=== PATIENT | female | born 1945 | race African-American/Black ===

== ENCOUNTER 2016-12-23 21:40 | Observation (INO) | payer OTHER, SELFPAY ==
--- NOTE | ~2016-12-23 | EKG ---
PATIENT: SHIREEN LEGER UNIT #: [id number] Ventricular Rate: 99 BPM Atrial Rate: 100 BPM P-R Interval: 152 ms QRS Duration: 84 ms Q-T Interval: 334 ms QTC Calculation(Bezet): 428 ms P Baker: 35 degrees Calculated R Baker: -30 degrees Calculated T Baker: 50 degrees Diagnosis Line: Normal sinus rhythm Diagnosis Line: Left axis deviation Diagnosis Line: Lead switch V1-V2 and V3 Diagnosis Line: Moderate voltage criteria for LVH, may be normal Diagnosis Line: variant Diagnosis Line: Abnormal ECG Diagnosis Line: When compared with ECG of 06-NOV-2016 06:05, Diagnosis Line: Criteria for Inferior infarct are no longer Diagnosis Line: Present Diagnosis Line: Confirmed by TRUONG ALEXIS MD ([id number]) on 12/25/2016 Diagnosis Line: 7:30:37 PM INTERPRETING MD: VANESA MITCHELL
--- NOTE | ~2016-12-23 | EKG ---
PATIENT: SHIREEN LEGER UNIT #: [id number] Ventricular Rate: 89 BPM Atrial Rate: 89 BPM P-R Interval: 148 ms QRS Duration: 80 ms Q-T Interval: 352 ms QTC Calculation(Bezet): 428 ms P [place]: 49 degrees Calculated R [place]: -28 degrees Calculated T [place]: 48 degrees Diagnosis Line: Normal sinus rhythm Diagnosis Line: Minimal voltage criteria for LVH, may be normal Diagnosis Line: variant Diagnosis Line: Borderline ECG Diagnosis Line: When compared with ECG of 23-DEC-2016 20:38, Diagnosis Line: (unconfirmed) Diagnosis Line: No significant change was found Diagnosis Line: Confirmed by TRUONG ALEXIS MD ([id number]) on 12/25/2016 Diagnosis Line: 7:30:47 PM INTERPRETING MD: VANESA MITCHELL
--- NOTE | ~2016-12-23 | CR72 ---
[facility] A Service of [facility] RADIOLOGY TEXT RESULTS PATIENT: SHIREEN LEGER LOCATION: CEDOF : 44 UNIT #: [id number] AGE: [address]: Danielle Brewer MD SEX: F ORDER DR: [id number] [facility] [address]. [place], [place] [address] [id number] I MR#: [id number] Acc #: [id number] NAME: SHIREEN LEGER : 1945 SEX: F STUDY DATE/TIME: 12/23/2016 21:14 UNIT: CED ROOM: 97150 STUDY DESCRIPTION: CR Chest Single View Portable Attending Physician: Danielle Brewer M.D. Ordering Physician: Jeremy Gibson M.D. Primary Care Physician: Fernando Stevenson M.D. MEDICAL IMAGING REPORT This report is preliminary unless electronic signature is present EXAM Portable chest HISTORY Chest pain and shortness of air since yesterday. Asthma. FINDINGS Cardiac size and pulmonary vascularity are normal. No focal infiltrates or effusions. Mild linear atelectasis or scarring in both lung bases. Degenerative changes in both shoulders. IMPRESSION No acute findings. No active disease. Dictated by... Thien Santos M.D. THIS IS AN ELECTRONICALLY VERIFIED REPORT Thien Santos M.D. at 12/24/2016 1:59 PM ODILIA/abner TD: 12/24/2016 13:39 JOB #: [id number] MEDICAL IMAGING REPORT COPY
--- NOTE | ~2016-12-23 | DS ---
Unit #: [id number] #: [id number] Patient: SHIREEN GUZMAN [id number] [address] [place], [place] [address] [id number] I MR#: [id number] NAME: SHIREEN GUZMAN ROOM: [address]0635 Age: 71 Sex: F Admission Date: 12/23/2016 : 1945 Discharge Date: 12/24/2016 Attending Physician: Danielle Brewer M.D. Primary Care Physician: Fernando Stevenson M.D. DISCHARGE SUMMARY HISTORY OF PRESENT ILLNESS This is a 71-year-old female who is well known to Dr. Brewer. Has a history of having chronic diastolic dysfunction, diabetes mellitus type 2, hyperlipidemia, hypertension in the past but sometimes hypotension, iron deficiency anemia, GERD, COPD, obstructive sleep apnea, asthma, chronic kidney disease, obesity. Had a cath back in October of this year that revealed normal left main and normal left circumflex with 40% to 50% mid stenosis in the LAD, 30% stenosis in the RCA with a normal LVEF. The patient came to the emergency room with complaints of midsternal chest pain that radiated over to the left side of the heart. She said it was sharp, shooting in nature, was waxing and waning. It has been going off and on for 2 days. She has sublingual nitroglycerin at home, and she took the medication twice, and it did seem to ease off the discomfort. She has also been having some occasional lightheadedness and dizziness, which she says is not new. She has been having that for a couple years. The dizziness and lightheadedness is not associated with the chest pain. She denies any pain up into her neck, bilateral jaws, shoulders, arms or elbow. She does have some arthritic pain in her cervical spine. She denies any palpitations. When she does get lightheaded, she denies any pre-syncope or syncopal episodes. She has been going to Dr. Stevenson and her dinkey engine operator, Dr. Davies, over the past 2-3 weeks for a persistent cough and chest congestion. Sounds like they are treating for some exacerbation of her asthma and/or some bronchitis. The patient does have some increased lower extremity edema, but she says that has not worsened. In the emergency room, the patient's blood pressure was 125/90, heart rate was 104, respirations 22, temperature 98.3. The patient's cardiac enzymes have been negative. Her EKG shows normal sinus rhythm. She does have some left ventricular hypertrophy. There are no acute ischemic changes. BNP is 30. WBC is 17, but she has been on steroids as an outpatient. Her hemoglobin is 8.8. Chest x-ray does not show anything acute. Orthostatic vital signs were obtained. They were unremarkable except her heart rate did elevate with standing. Her systolic blood pressure remained in the 120s lying and standing, and she did not complain of any acute dizziness or lightheadedness. Dr. Anguiano wants to discuss with the patient that he feels her chest pain is not cardiac in nature and likely GI in nature. However, he did look at her last cardiac cath, which was less than 2 months ago. He wants to start Unit #: [id number] #: [id number] Patient: SHIREEN GUZMAN her on a small dose of atenolol 25 mg p.o. daily due to her being a little tachycardic on exam. Also, start her on low-dose Imdur 30 mg daily. She is on her home dose of Lasix 40 mg, will cut that down to 20 mg to avoid any hypotension. The patient requested to change her stomach medication, and that will be changed to Protonix 40 mg daily. The patient states she has a followup appointment with Dr. Brewer on January 03. Will advise the patient to keep that appointment. Dr. Anguiano discussed plans with the patient and daughter at the bedside that, if the chest pain recurs, she may need cardiac cath to check an FFR on the mid LAD stenosis. The patient is favorable for this recommendation. On exam at the time of discharge, her blood pressure and heart rate are stable. No complaints of chest pain. HOME MEDICATIONS 1. Gabapentin 300 mg p.o. t.i.d. 2. Potassium chloride 8 mEq p.o. b.i.d. 3. Prilosec 20 mg p.o. daily. 4. Furosemide "40" mg p.o. daily. 5. Singulair 10 mg p.o. at bedtime. 6. Vitamin D2 - 1.25 mg p.o. monthly. 7. Lipitor 40 mg p.o. at bedtime. 8. Nitrostat 0.4 mg sublingual p.r.n. 9. Symbicort 2 puffs inhalation b.i.d. 10. Ventolin 2 puffs inhalation q.6 hours. ALLERGIES No known drug allergies. PAST MEDICAL HISTORY 1. Cardiac cath 11/06/2016. Normal LVEF. Normal left main and normal left circumflex. LAD had 40% to 50% mid stenosis. The RCA had 30% mid stenosis. 2. Diabetes mellitus type 2. 3. Hypertension in the past but has had problems with hypotension; not on a beta-klarissa because of hypotension. 4. Hyperthyroidism. 5. Peripheral vascular disease. 6. Iron deficiency anemia. 7. Gastroesophageal reflux disease. 8. COPD. 9. Obstructive sleep apnea, unable to tolerate CPAP or BiPAP. 10. Asthma. 11. Chronic lower extremity edema. 12. Glaucoma. 13. Chronic kidney disease. 14. Obesity. 15. December 2015, EGD showed antral erosive moderate gastritis. Had a colonoscopy, removed 5 polyps by polypectomy and revealed diverticulosis. 16. History of chronic diastolic congestive heart failure. 17. Reformed smoker. 18. Latest two-D echo. Mei is down during this dictation, but there was one done 10/2014 that showed overall normal to hyperdynamic LV systolic contractility with [id number]-[id number] concentric left ventricular hypertrophy, trace mitral regurgitation, trace tricuspid regurgitation. 19. October 2014, acute kidney injury secondary to ATN requiring SLED. Unit #: [id number] #: [id number] Patient: SHIREEN GUZMAN The patient has not required further dialysis. PAST SURGICAL HISTORY 1. Pericardial window in the past. 2. Total abdominal hysterectomy. 3. Right wrist surgery. PHYSICAL EXAMINATION GENERAL: On exam, Ms. Guzman is a 71-year-old female in no acute respiratory distress. VITAL SIGNS: Blood pressure lying is 135/67, heart rate 99; blood pressure standing 127/64, heart rate 120, respirations 18. She is afebrile. NECK: Trachea is midline. No thyromegaly or lymphadenopathy. Normal carotid upstrokes. No jugular venous distention. HEART: S1, S2, regular rate and rhythm. No clicks, murmurs, or rubs. LUNGS: Diminished; otherwise, clear. ABDOMEN: Obese, soft, nontender. EXTREMITIES: Pedal pulses are palpable, 1+ pedal edema. DIAGNOSTIC STUDIES LABORATORY DIAGNOSTIC DATA: Glucose is 125, BUN 23, creatinine 1.4, eGFR 47.5, sodium 139, potassium 3.8, chloride 102, CO2 27, calcium 8.7, total protein 7.2, albumin 3.6, bili total 0.9, AST 56, ALT 63, alkaline phosphatase 130. BNP 30. WBC is 17.3, hemoglobin 8.8, hematocrit 29.7, platelets 206. Initial cardiac enzymes - CK-MB is 3.2, troponin less than 0.05; CK-MB 1.8 with troponin of less than 0.05. INR is 1. Repeat cardiac enzymes - Troponin less than 0.03. IMAGING: Chest x-ray - No acute findings. Lungs are clear. CARDIOVASCULAR: EKG shows normal sinus rhythm with ventricular rate 89 beats per minute, left ventricular hypertrophy. No acute ischemic changes. PLAN/INSTRUCTIONS 1. The patient has been instructed to keep her followup appointment with Dr. Brewer on 01/03/2017. 2. New prescriptions for atenolol 25 mg daily, Imdur 30 mg daily, Lasix decreased down to 20 mg daily and change Protonix to 40 mg daily. It has been instructed to the patient. 3. Instruct the patient if chest pain reoccurs, to return to the emergency room or discuss with Dr. Anguiano or Dr. Brewer and she may need repeat heart catheterization to evaluate the FFR on the mid LAD stenosis. 4. Instruct to follow up with Dr. Stevenson and Dr. Davies, her dinkey engine operator, as previously scheduled appointments. Dictated by... Tori Rodriguez/john TD: 12/24/2016 14:12 JOB #: [id number] Unit #: [id number] #: [id number] Patient: SHIREEN GUZMAN DISCHARGE SUMMARY X Claudia Foster APRN DISCHARGE SUMMARY
[2016-12-23 21:23] LABS: BASOPHIL# 0.1 X10e3 (0-0.3); BASOPHIL% 0.6 % (0-2.5); DIFF IND YES; EOSINOPHIL# 0.2 X10e3 (0-0.7); HEMATOCRIT 29.7 % (35.0-45.0); HEMOGLOBIN 8.8 gm/dL (12.0-16.0); LYMPHOCYTE# 2.5 X10e3 (1.0-3.5); LYMPHOCYTE% 12.7 % (17.0-45.0); MEAN CELL VOLUME 75.1 FL (83-96); MEAN CORPUSCULAR HEMOGLOBIN 22.3 PG (28-34); MEAN CORPUSCULAR HGB CONC 29.7 g/dL (30-36); MEAN PLATELET VOLUME 7.9 FL (6.5-11.5); MONOCYTE# 1.1 X10e3 (0-1.0); MONOCYTE% 5.9 % (3.0-12.0); NEUTROPHIL# 15.6 X10e3 (1.5-7.1); NEUTROPHIL% 79.8 % (40-75); PLATELET COUNT 253 X10e3 (140-420); RED BLOOD COUNT 3.96 X10e (3.90-5.30); RED CELL DISTRIBUTION WIDTH 20.9 % (11.0-15.5); WHITE BLOOD COUNT 19.6 X10e3 (4.0-10.5)
[2016-12-23 21:30] LABS: POC - CKMB 3.2 ng/mL (0.0-7.9); POC - TROPONIN <0.05 ng/mL (<=0.05)
[2016-12-23 21:31] LABS: PARTIAL THROMBOPLASTIN TIME 22.9 SECONDS (23.5-31.3); PROTHROMBIN TIME (PATIENT) 10.8 SECONDS (9.6-11.5)
[~2016-12-23 21:40] MED LIST: ACETAMINOPHEN PO; ACETAMINOPHEN650 M3 PO; ADVAIR 5001 DISK W/1 IH; ALBUTEROL 0.5ML IH; ALBUTEROL 0.5ML INH; ALBUTEROL SULF8.5 G1 IH; ALBUTEROL17 GM INH; ASPIRIN EC81 M1 PO; ASPIRIN81 MG PO; ATRAC-TAIN142 GM TP; CIPRO PO; COMBIVENT U/D3 M2 INH; DUONEB 2.5-0.5 M3 ML NEB; FERRO-TIME325 MG PO; FUROSEMIDE40 MG PO; GABAPENTIN300 M2 PO; IPRATR-ALBUTEROL3 ML INH; KEFLEX500 M1; KLOR-CON 88 ME1 PO; LASIX PO; LIPITOR40 MG PO; LISINOPRIL2.5 MG PO; LISINOPRIL20 MG PO; LOC PO; MONTELUKAST SOD10 MG PO; MOTRIN100 MG PO; NEURONTIN300 MG PO; NITROSTAT0.4 MG SL; OMEPRAZOLE20 M1 PO; PANTOPRAZOLE SO40 MG PO; PARICALCITOL1 MCG PO; PERFOROMIS20 MCG/2 M IH; PERFOROMIS20 MCG/2 M NEB; POTASSIUM CHLO10 ME1 PO; POTASSIUM CHLOR8 MEQ PO; PREDNISONE PO; PREDNISONE10 MG PO; PRILOSEC PO; PRILOSEC20 M1 PO; PRILOSEC20 MG PO; PRILOSEC40 MG PO; PROAIR HFA8.5 GM IH; PULMICORT0.5 MG/2 M IH; PULMICORT0.5 MG/2 M NEB; SILVASORB TP; SIMVASTATIN20 MG PO; SIMVASTATIN40 MG PO; SINGULAIR PO; SLOW RELEASE47.5 MG PO; SYMBICORT INH; SYMBICORT80; VENTOLIN HFA; VIBRAMYCIN100 M1 DOB; VIBRAMYCIN100 M1 PO; VITAMIN D2400 UNIT PO; VITAMIN D50000 UNIT PO; WELCHOL625 MG PO; ZEMPLAR1 MCG PO; ZESTRIL2.5 M1 PO
[2016-12-23 21:41] LABS: ALBUMIN SERUM 3.6 g/dL (3.5-5.0); BILIRUBIN, DIRECT 0.2 mg/dL (0.0-0.2); BILIRUBIN,INDIRECT 0.7 mg/dL (0.0-0.9); BILIRUBIN,TOTAL 0.9 mg/dL (0.2-2.0); BUN/CREATININE RATIO 16.42; CALCIUM SERUM 8.7 mg/dL (8.4-10.2); CREATININE SERUM 1.4 mg/dL (0.6-1.4); GLOM FILT RATE Estimated 47.5 mL/min (>60); POTASSIUM 3.8 mmol/L (3.5-5.1); PROTEIN TOTAL SERUM 7.2 g/dL (6.0-8.3)
[2016-12-23 21:56] LABS: HYPOCHROMIA SL; PLATELET ESTIMATE NORMAL (NORMAL); POIKILOCYTOSIS MOD; ROULEAUX SLIGHT
[2016-12-23 22:55] LABS: POC - CKMB 1.8 ng/mL (0.0-7.9); POC - TROPONIN <0.05 ng/mL (<=0.05)
[2016-12-24 04:09] LABS: BASOPHIL# 0.1 X10e3 (0-0.3); BASOPHIL% 0.9 % (0-2.5); EOSINOPHIL# 0.1 X10e3 (0-0.7); EOSINOPHIL% 0.9 % (0.0-7.0); HEMATOCRIT 27.4 % (35.0-45.0); HEMOGLOBIN 8.1 gm/dL (12.0-16.0); LYMPHOCYTE# 2.4 X10e3 (1.0-3.5); LYMPHOCYTE% 14.1 % (17.0-45.0); MEAN CELL VOLUME 75.2 FL (83-96); MEAN CORPUSCULAR HEMOGLOBIN 22.3 PG (28-34); MEAN CORPUSCULAR HGB CONC 29.7 g/dL (30-36); MEAN PLATELET VOLUME 7.7 FL (6.5-11.5); MONOCYTE# 1.1 X10e3 (0-1.0); MONOCYTE% 6.2 % (3.0-12.0); NEUTROPHIL# 13.5 X10e3 (1.5-7.1); NEUTROPHIL% 77.9 % (40-75); PLATELET COUNT 206 X10e3 (140-420); RED BLOOD COUNT 3.64 X10e (3.90-5.30); RED CELL DISTRIBUTION WIDTH 20.6 % (11.0-15.5); WHITE BLOOD COUNT 17.3 X10e3 (4.0-10.5)
[2016-12-24 04:10] LABS: DIFF IND NO
== END 2016-12-24 11:04 | disposition home or self-care (01) ==
LOC: CED 21:40 → CEDOF 22:27
PROVIDERS: Emergency Medicine; Internal Medicine Cardiovascular Disease
DX: R07.89 Other chest pain (principal); I25.10 Atherosclerotic heart disease of native coronary artery without angina pectoris; E11.22 Type 2 diabetes mellitus with diabetic chronic kidney disease; N18.9 Chronic kidney disease, unspecified; D63.1 Anemia in chronic kidney disease; I73.9 Peripheral vascular disease, unspecified; K21.9 Gastro-esophageal reflux disease without esophagitis; J44.9 Chronic obstructive pulmonary disease, unspecified; G47.33 Obstructive sleep apnea (adult) (pediatric); E66.9 Obesity, unspecified; R42 Dizziness and giddiness; R60.0 Localized edema; J45.909 Unspecified asthma, uncomplicated; Z86.79 Personal history of other diseases of the circulatory system; Z87.891 Personal history of nicotine dependence
CPT/HCPCS: 36415; 71010; 80048; 80076; 82553; 83880; 84484; 85025; 85610; 85730; 93005; 94664; 94760; 99285; G0378

== ENCOUNTER → 2017-04-19 | Outpatient (CLI) | payer OTHER ==
[~2017-04-19] MED LIST changes: +(NONE)1 CA1 PO; +ALB/IPRATROPIUM/1 E1 INH; +ATORVASTATIN CA40 MG PO; +IMDUR-ER30 M1 PO; +MULTIVITAMINS1 EAC3 PO; +PARICALCITOL PO; +POTASSIUM AZELAO1 ML PO; +TENORMIN25 MG PO; +TRAMADOL HCL50 M2 PO
== END | disposition home or self-care (01) ==
LOC: CLAB 11:07
DX: D50.9 Iron deficiency anemia, unspecified (principal)
CPT/HCPCS: 36415; 86850; 86870; 86900; 86901; 86922

== ENCOUNTER → 2017-04-20 | Outpatient (CLI) | payer OTHER | END | disposition home or self-care (01) | LOC: CSSDAY 08:00 | DX: D50.9 Iron deficiency anemia, unspecified (principal) | CPT/HCPCS: 36430; J1200; J1940; P9016 ==

== ENCOUNTER 2017-06-28 17:54 | Observation (INO) | payer OTHER ==
[~2017-06-28] VITALS: Ht 157.5 cm; Wt 114.4 kg
--- NOTE | ~2017-06-28 | HP ---
Unit #: [id number] #: [id number] Patient: SHIREEN LEGER [id number] [address] [place], [place] [address] [id number] I MR#: [id number] NAME: SHIREEN LEGER ROOM: 37845 Age: 72 Sex: F Admission Date: 06/28/2017 : 1945 Attending Physician: Soha Jordan M.D. Primary Care Physician: Fernando Stevenson M.D. HISTORY AND PHYSICAL CHIEF COMPLAINT Chief complains is iybpd-tc-uktumis iron deficiency anemia. HISTORY This pleasant 72-year-old female with COPD, diastolic dysfunction, chronic iron deficiency anemia is admitted for hyknd-em-xgavwgi anemia. Patient states that over the past one to two weeks she has been more fatigued, sleeping more, denies melena or hematochezia. Her last transfusion was as an outpatient in March. She is followed by Dr. Zhou for iron deficiency anemia, has undergone extensive workups including scopes, camera endoscopy, bone marrow biopsy. Blood work was performed yesterday by Dr. Stevenson in preparation for her to see her rope cleaner. The patient was called today and told to present to the emergency department for worsening anemia. She currently is heme negative from below. Her hematocrit is 21.4 with a hemoglobin of 5.9, MCV 65, down from a hematocrit of 27.4, hemoglobin of 8.1 in December. PAST MEDICAL HISTORY 1. COPD. 2. Mild to moderate CAD. Cardiac catheterization 10/2016 revealed 40 to 50% mid LAD lesion, 30% RCA lesion, normal ejection fraction. The patient does have a history of diastolic dysfunction. 3. History of ATN 10/2014 requiring SLED. Patient has not required further dialysis. Does have chronic kidney disease. 4. Obstructive sleep apnea, unable to tolerate CPAP or BiPAP. 5. Hyperlipidemia. 6. DJD. 7. History of iron deficiency anemia for which the patient has undergone extensive workup and is followed by Dr. Rodriguez. 8. Last EGD 12/2015 revealed moderate gastritis. 9. Colonoscopy, 5 polyps were removed, diverticular disease noted. 10. Patient underwent camera endoscopy in the past along with bone marrow biopsy. 11. Chronic venous stasis changes. 12. Peripheral vascular disease. 13. Diet controlled AODM. 14. Hypertension. 15. Pericardial window. 16. Total abdominal hysterectomy. 17. Right wrist surgery. ALLERGIES Unit #: [id number] #: [id number] Patient: SHIREEN LEGER No known drug allergies. HOME MEDICATIONS 1. Neurontin 300 mg t.i.d. 2. Potassium 8 mEq b.i.d. 3. Lasix 40 mg b.i.d. 4. Singulair 10 mg daily. 5. Paricalcitol 1 mcg daily. 6. Ergocal 1.25 mcg monthly. 7. Lipitor 40 mg q.h.s. 8. Nitroglycerin p.r.n. chest pain. 9. DuoNebs q.4 h. as needed. 10. Symbicort 160/4.5 2 puffs b.i.d. 11. Ventolin inhaler 2 puffs q.6 hours. 12. Imdur 30 mg daily. 13. Atenolol 25 mg daily. 14. Protonix 40 mg daily. 15. Ultram 50 mg b.i.d. Patient states that she does not absorb oral iron. FAMILY HISTORY COPD. 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 Stopped smoking in 1995, does not drink alcohol. She lives with her daughter. REVIEW OF SYSTEMS Review of systems is notable for fatigue, weakness, anemia, COPD, diastolic dysfunction, mild to moderate CAD, chronic kidney disease, SHIRLEY, hyperlipidemia, DJD, anemia, chronic venous stasis with chronic pedal edema, peripheral vascular disease, diet controlled diabetes mellitus, hypertension and abovementioned surgeries. All other systems were reviewed and otherwise negative. PHYSICAL EXAMINATION GENERAL: Very pleasant obese 72-year-old female who currently is in no acute distress. VITAL SIGNS: Temperature 98.3. Pulse 90. Respirations 16. Blood pressure 120/42. O2 saturation is 99% on room air. HEENT: Eyes PERRLA, extraocular muscles are intact. Pharynx is benign. NECK: Supple, without adenopathy or thyromegaly. CHEST: Clear. CARDIAC: Normal S1 and S2, without S3, S4 or murmur. ABDOMEN: Bowel sounds are present. No hepatosplenomegaly, tenderness or masses. RECTAL EXAMINATION: In the ER Hemoccult negative. EXTREMITIES: Minimal if any edema, chronic venous stasis changes, pedal pulses are diminished. No ulcers on the feet. NEUROLOGIC EXAM: Patient is awake, alert, oriented. Her cranial nerves are intact. She has equal strength throughout. DIAGNOSTIC STUDIES ADMISSION LABS: Hematocrit is 21.4, down from 27.4 in December, MCV of 65.2, white blood count is 11.1, normal platelet count. Coags normal. SMA-12: Creatinine is 1.4 with a GFR of 43.1, alk phos 127. Unit #: [id number] #: [id number] Patient: SHIREEN LEGER ASSESSMENT 1. Kyfem-gk-aafrbbo microcytic anemia. Patient is followed by Dr. Rodriguez for iron deficiency anemia. She is symptomatic with worsening anemia. She is heme negative from below. Has undergone extensive workup by Dr. Rodriguez. I believe she had a low-level monoclonal-type spike on urine protein electrophoresis. Again, she is followed by Dr. Rodriguez for this. 2. Diet controlled adult-onset diabetes mellitus. 3. Mild to moderate coronary artery disease with diastolic dysfunction. 4. Chronic obstructive pulmonary disease and obstructive sleep apnea. 5. Stable chronic kidney disease. 6. Peripheral vascular disease. 7. Chronic venous stasis issues. 8. Essential hypertension. PLANS 1. Transfuse. 2. SCDs for DVT prophylaxis. 3. Check labs follows transfusion. 4. Patient will be admitted for 23-hour obs. Dictated by Soha Jordan M.D. AML/cf TD: 06/28/2017 21:19 JOB #: [id number] CC: Leon Rodriguez M.D. HISTORY AND PHYSICAL Page 1 of 1 X Soha Jordan MD HISTORY AND PHYSICAL
--- NOTE | ~2017-06-28 | DS ---
Unit #: [id number] #: [id number] Patient: SHIREEN LEGER [id number] [address] [address] [id number] I MR#: [id number] NAME: SHIREEN LEGER ROOM: 315 Age: 72 Sex: F Admission Date: 06/28/2017 : 1945 Discharge Date: 06/29/2017 Attending Physician: Ender Ying M.D. Primary Care Physician: Fernando Stevenson M.D. DISCHARGE SUMMARY DISCHARGE DIAGNOSIS Acute on chronic iron-deficiency anemia requiring blood transfusion. HOSPITAL COURSE The patient is a 72-year-old woman with a history significant for COPD, diastolic dysfunction, chronic iron-deficiency anemia, for which she had undergone extensive evaluation including upper endoscopy, colonoscopy, bone marrow biopsy. Ultimately, she is a poor absorber of iron and generally requires IV iron transfusions and follows up her lighting engineer, Dr. Singh. She presented with fatigue and her hemoglobin was noted to be 5.9. She received 2 units of packed RBC transfusion during her hospitalization. It improved her hemoglobin to 7.7. She currently feels better. No longer short of breath. No longer fatigue. Her O2 saturation is 100% on room air. The patient will be discharged home today. DISCHARGE MEDICATIONS Continue home medications which are furosemide 40 mg p.o. once daily, Singulair 10 mg p.o. at bedtime, tramadol 50 mg p.o. b.i.d. p.r.n., Protonix 40 mg daily, potassium chloride 8 mEq p.o. daily, isosorbide mononitrate 30 mg p.o. daily, albuterol inhaler 2 puffs q.6 p.r.n., Symbicort 2 puffs inhalation b.i.d., gabapentin 300 mg p.o. t.i.d., Lipitor 40 mg p.o. at bedtime, atenolol 25 mg p.o. once daily, sublingual nitroglycerin as needed for chest pain, ergocalciferol 1.25 mg p.o. monthly. In addition, adding multivitamin tablet one p.o. b.i.d. DISCHARGE INSTRUCTIONS Follow up with lighting engineer, Dr. Singh. Dictated by... Gabriela Knight/pro TD: 07/02/2017 07:55 JOB #: [id number] Unit #: [id number] #: [id number] Patient: SHIREEN LEGER DISCHARGE SUMMARY Page 1 of 1 X X DISCHARGE SUMMARY
--- NOTE | ~2017-06-28 | EKG ---
PATIENT: SHIREEN LEGER UNIT #: [id number] Ventricular Rate: 83 BPM Atrial Rate: 83 BPM P-R Interval: 140 ms QRS Duration: 80 ms Q-T Interval: 346 ms QTC Calculation(Bezet): 406 ms Calculated R [place]: -26 degrees Calculated T [place]: -169 degrees Diagnosis Line: Normal sinus rhythm Diagnosis Line: ST and T wave abnormality, consider inferolateral Diagnosis Line: ischemia Diagnosis Line: Abnormal ECG Diagnosis Line: When compared with ECG of 24-DEC-2016 02:53, Diagnosis Line: T wave inversion now evident in Inferior leads Diagnosis Line: T wave inversion now evident in Lateral leads Diagnosis Line: Confirmed by JANIS KENNY MD ([id number]) on 07/01/2017 Diagnosis Line: 10:57:52 PM INTERPRETING MD: ZOYA MITCHELL
--- NOTE | ~2017-06-28 | BMI ---
[facility] Nutrition Therapy DATE: 06/29/17 Patient: SHIREEN LEGER Physician: BATOOL Address: [address] [address] Room/Bed: [address] [place] [address], Zip: [place] [address] Admit Date: 06/28/17 Date of : [birth year] Height: 5 2 Weight: 252 114.4 HIGH BMI NOTE: DX: 72 Y.O. FEMALE ADMITTED FOR ANEMIA ANTHROPOMETRICS: 5'2", WT: 250# (114 KG), BMI: 45.7 DIET: CONSISTENT CARBOHYDRATE RECOMMENDATIONS: 1. RECOMMEND TO ADD HEALTHY HEART TO CURRENT DIET ORDER ABOVE TO PROMOTE GRADUAL WEIGHT LOSS TOWARDS HEALTHY BMI (19.0-25.0) OR +/-10%IBW RD WILL F/U PER PROTOCOL Respectfully, CR CEDILLO MS, RD, LD Food and Nutritional Services [facility] cc: client file
[~2017-06-28 17:54] MED LIST changes: -(NONE)1 CA1 PO; -ALB/IPRATROPIUM/1 E1 INH; -ATORVASTATIN CA40 MG PO; -IMDUR-ER30 M1 PO; -MULTIVITAMINS1 EAC3 PO; -PARICALCITOL PO; -POTASSIUM AZELAO1 ML PO; -TENORMIN25 MG PO; -TRAMADOL HCL50 M2 PO
[2017-06-28 18:55] LABS: BASOPHIL# 0.1 X10e3 (0-0.3); EOSINOPHIL# 0.4 X10e3 (0-0.7); EOSINOPHIL% 3.4 % (0.0-7.0); HEMATOCRIT 21.4 % (35.0-45.0); LYMPHOCYTE# 1.3 X10e3 (1.0-3.5); LYMPHOCYTE% 11.7 % (17.0-45.0); MEAN CELL VOLUME 65.2 FL (83-96); MEAN CORPUSCULAR HEMOGLOBIN 17.9 PG (28-34); MEAN CORPUSCULAR HGB CONC 27.4 g/dL (30-36); MEAN PLATELET VOLUME 8.1 FL (6.5-11.5); MONOCYTE# 0.8 X10e3 (0-1.0); MONOCYTE% 6.9 % (3.0-12.0); NEUTROPHIL# 8.6 X10e3 (1.5-7.1); PLATELET COUNT 247 X10e3 (140-420); RED BLOOD COUNT 3.29 X10e (3.90-5.30); RED CELL DISTRIBUTION WIDTH 21.6 % (11.0-15.5); WHITE BLOOD COUNT 11.1 X10e3 (4.0-10.5)
[2017-06-28 19:06] LABS: INR 1.1; PARTIAL THROMBOPLASTIN TIME 25.2 SECONDS (23.5-31.3)
[2017-06-28 19:07] LABS: DIFF IND YES; HEMOGLOBIN 5.9 gm/dL (12.0-16.0)
[2017-06-28 19:11] LABS: ALBUMIN SERUM 3.8 g/dL (3.5-5.0); BILIRUBIN, DIRECT 0.3 mg/dL (0.0-0.2); BILIRUBIN,INDIRECT 0.8 mg/dL (0.0-0.9); BILIRUBIN,TOTAL 1.1 mg/dL (0.2-2.0); BUN/CREATININE RATIO 9.28; CREATININE SERUM 1.4 mg/dL (0.6-1.4); GLOM FILT RATE Estimated 43.1 mL/min (>60); POTASSIUM 3.9 mmol/L (3.5-5.1); PROTEIN TOTAL SERUM 7.7 g/dL (6.0-8.3)
[2017-06-28 19:41] LABS: PLATELET ESTIMATE NORMAL (NORMAL); TARGET CELLS MOD
[2017-06-28 19:50] LABS: MICROCYTOSIS MOD
[2017-06-28] MEDS ORDERED: GABAPENTIN300 M2 PO (22:51)
[2017-06-28] MEDS ORDERED: POTASSIUM AZELAO1 ML PO (22:51)
[2017-06-28] MEDS ORDERED: FUROSEMIDE40 MG PO (22:52)
[2017-06-28] MEDS ORDERED: SINGULAIR PO (22:52)
[2017-06-28] MEDS ORDERED: PARICALCITOL PO (22:53)
[2017-06-28] MEDS ORDERED: ATORVASTATIN CA40 MG PO (22:55)
[2017-06-28] MEDS ORDERED: (NONE)1 CA1 PO (22:55)
[2017-06-28] MEDS ORDERED: NITROSTAT0.4 MG SL (22:56)
[2017-06-28] MEDS ORDERED: ALB/IPRATROPIUM/1 E1 INH (22:57)
[2017-06-28] MEDS ORDERED: SYMBICORT INH (22:57)
[2017-06-28] MEDS ORDERED: ALBUTEROL17 GM INH (22:58)
[2017-06-28] MEDS ORDERED: IMDUR-ER30 M1 PO (22:58)
[2017-06-28] MEDS ORDERED: TENORMIN25 MG PO (22:59)
[2017-06-28] MEDS ORDERED: PANTOPRAZOLE SO40 MG PO (22:59)
[2017-06-28] MEDS ORDERED: TRAMADOL HCL50 M2 PO (23:00)
[2017-06-28] MEDS ORDERED: POTASSIUM CHLOR8 MEQ PO (23:05)
[2017-06-29 04:18] LABS: INR 1.1; PARTIAL THROMBOPLASTIN TIME 24.7 SECONDS (23.5-31.3); PROTHROMBIN TIME (PATIENT) 12.3 SECONDS (10.0-11.7)
[2017-06-29 04:37] LABS: BUN/CREATININE RATIO 11.66; CREATININE SERUM 1.2 mg/dL (0.6-1.4); GLOM FILT RATE Estimated 51.9 mL/min (>60); POTASSIUM 3.9 mmol/L (3.5-5.1)
[2017-06-29 04:45] LABS: BASOPHIL# 0.1 X10e3 (0-0.3); EOSINOPHIL# 0.5 X10e3 (0-0.7); EOSINOPHIL% 4.5 % (0.0-7.0); HEMOGLOBIN 7.7 gm/dL (12.0-16.0); LYMPHOCYTE# 1.3 X10e3 (1.0-3.5); MEAN CORPUSCULAR HGB CONC 30.7 g/dL (30-36); MEAN PLATELET VOLUME 8.1 FL (6.5-11.5); MONOCYTE# 0.9 X10e3 (0-1.0); MONOCYTE% 8.1 % (3.0-12.0); NEUTROPHIL# 8.6 X10e3 (1.5-7.1); NEUTROPHIL% 75.4 % (40-75); PLATELET COUNT 207 X10e3 (140-420); RED BLOOD COUNT 3.66 X10e (3.90-5.30); RED CELL DISTRIBUTION WIDTH 23.8 % (11.0-15.5); WHITE BLOOD COUNT 11.4 X10e3 (4.0-10.5)
[2017-06-29 04:46] LABS: MEAN CELL VOLUME 68.4 FL (83-96)
[2017-06-29 04:47] LABS: DIFF IND NO
[2017-06-29] MEDS ORDERED: MULTIVITAMINS1 EAC3 PO (17:05)
== END 2017-06-29 18:21 | disposition home or self-care (01) ==
LOC: CED 17:54 → C3A PCU 21:00 → CEDOF 21:00 → CED 21:05 → CEDOF 21:05 → C3A PCU 22:07 → CEDOF 22:07 → C3A PCU 22:07
PROVIDERS: Emergency Medicine; Internal Medicine
DX: D50.9 Iron deficiency anemia, unspecified (principal); E11.8 Type 2 diabetes mellitus with unspecified complications; I25.10 Atherosclerotic heart disease of native coronary artery without angina pectoris; J44.9 Chronic obstructive pulmonary disease, unspecified; G47.33 Obstructive sleep apnea (adult) (pediatric); I13.10 Hypertensive heart and chronic kidney disease without heart failure, with stage 1 through stage 4 chronic kidney disease, or unspecified chronic kidney disease; N18.9 Chronic kidney disease, unspecified; I87.8 Other specified disorders of veins; E78.5 Hyperlipidemia, unspecified; I73.9 Peripheral vascular disease, unspecified; Z87.891 Personal history of nicotine dependence; Z79.899 Other long term (current) drug therapy
CPT/HCPCS: 36415; 36430; 80048; 80076; 85025; 85610; 85730; 86850; 86900; 86901; 86922; 93005; 94640; 94760; 99285; G0378; J3420; P9016